=== PATIENT | male | born 1965 | race Caucasian/White ===

== ENCOUNTER 2023-05-04 14:08 | Emergency (ER) | payer OTHER, SELFPAY ==
[2023-05-04 14:08] VITALS: BP 156/100; PULSE 74; RESP 16; O2SAT 100
[2023-05-04 14:09] VITALS: BP 156/100; PULSE 76; RESP 14; TEMP 36.5; O2SAT 100; BMI 22.7
--- NOTE | 2023-05-04 14:34 | EKG12_ITS ---
Test Reason : DIZZY Blood Pressure : / mmHG Vent. Rate : 058 BPM Atrial Rate : 058 BPM P-R Int : 200 ms QRS Dur : 074 ms QT Int : 402 ms P-R-T Axes : -01 070 027 degrees QTc Int : 394 ms Sinus bradycardia Otherwise normal ECG Confirmed by BEVERLEY BACON, DAYNE ([id number]), society editor CHELSIE DAWSON ([id number]) on 05/05/2023 9:15:31 AM Referred By: Confirmed By:DAYNE LOWERY MD
--- NOTE | 2023-05-04 14:45 | RAD_ITS ---
STUDY: X-RAY CHEST REASON FOR EXAM: Male, 58 years old. Chest pain. TECHNIQUE: PA and lateral views of the chest. COMPARISON: None. FINDINGS: Surgical clips are seen overlying the right lung apex. There is hyperinflation of the lungs consistent with chronic obstructive lung disease (COPD). There is no demonstrated pleural abnormality. Normal size heart. Normal mediastinum and ian. There is prominence of the pulmonary hilar arteries without peripheral pulmonary vascular congestion, suggesting pulmonary hypertension. Normal visualized aortic arch and descending thoracic aorta. There are degenerative changes of the visualized thoracic spine. Normal visualized ribs, clavicles, and shoulders. There is no demonstrated abnormality of the visualized soft tissue structures of the upper abdomen. RAD/Chest PA and Lateral IMPRESSION: Hyperinflation and COPD. No acute infiltrate is seen. Electronically Signed: Stas Bird MD at 15:11 EDT ,
--- NOTE | 2023-05-04 14:46 | EDS_ITS ---
HPI <Esther Murillo RN - Last Filed: 05/04/23 17:03> History of Present Illness Chief Complaint: Dizziness Detail of Chief Complaint: Lightheaded and weak, bilateral rib cramping Informant: patient Onset/Context/Timing Onset: Yesterday Quality: Cramping Location: Bilateral lower ribs, midaxillary line Current Severity: 5/10 Maximum Severity: 8/10 Worsened by: Activity Relieved by: Rest Associated Symptoms Associated Symptoms: None Narrative Narrative: Patient is a 58-year-old male with past medical history significant for head and neck cancer with last chemo 10/2022, radiation 11/09/2022, chronic diarrhea, and OR with stent in 09/2022 who presents with intermittent lightheaded nests and weakness beginning yesterday. Patient also complains of bilateral lower rib cramping located at the mid axillary line right side greater than left. Patient reports pain worse with deep inspiration and activity. Denies injury or strenuous activity other than work. Denies shortness of breath, chest pain, or palpitations. He reports no change in appetite. 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 Has not taken any medication for pain. Patient reports last visit with physician was at the [facility] 1 month ago. Patient denies recent ill contacts or travel. Denies alcohol use. Patient is a 1 pack/day smoker x 49 years. Prior similar symptoms: No Recent Illness/Hospitalization: No PFSH <Esther Murillo RN - Last Filed: 05/04/23 17:03> PFSH Medical History Cancer of neck Hyperlipidemia Home Medications atorvastatin 80 mg tablet 80 mg PO DAILY 05/04/23 [History Last Taken Unknown] clopidogrel 75 mg tablet 75 mg PO DAILY 05/04/23 [History Last Taken Unknown] gabapentin 800 mg tablet 800 mg PO TID 05/04/23 [History Last Taken Unknown] Allergy/AdvReac Type Severity Reaction Status Date / Time No Known Allergies Allergy Verified 05/04/23 14:10 Surgical History Stented coronary artery Social History Smoking Status: Current every day smoker tobacco type: cigarettes ROS <Esther Murillo RN - Last Filed: 05/04/23 17:03> ROS ED Constitutional Constitutional ED: Denies chills, fever(s), sweats or weight loss Eyes Eyes: Denies change in vision ENT ENT ED: Denies ear pain, rhinorrhea or sore throat Cardiovascular Cardiovascular: Denies chest pain, orthopnea, palpitations, paroxysmal nocturnal dyspnea or racing heartbeat Respiratory/Chest Respiratory/Chest: Denies cough, dyspnea, dyspnea on exertion, orthopnea or paroxysmal nocturnal dyspnea Gastrointestinal Gastrointestinal: Reports diarrhea and other Details: Chronic diarrhea ; Denies abdominal pain, constipation, melena, nausea or vomiting Genitourinary Genitourinary ED: Reports other Details: Intermittent dark urine ; Denies dysuria, hematuria or urinary frequency Musculoskeletal Musculoskeletal: Reports myalgias; Denies arthralgias or back pain Integumentary Denies abscess, Abrasions or rash Neurologic Neurologic: Reports weakness; Denies headache(s) or paresthesias Psychiatric Psychiatric: Denies anxiety or depression Endocrine Endocrinology: Denies cold intolerance, heat intolerance, polydipsia, polyphagia or polyuria Hematologic/Lymphatic Hematologic/Lymphatic: Reports systems reviewed and no addt'l complaints, except as documented Allergic/Immunologic Allergic/Immunologic ED: Denies urticaria EXAM <Esther Murillo RN - Last Filed: 05/04/23 17:03> Physical Exam Narrative Exam Narrative: Patient is a thin male, awake and alert. Talkative, cooperative. Good historian. Const Vital Signs: 05/04/23 14:08 05/04/23 14:09 05/04/23 14:14 Temperature 97.7 F L Temperature Source Temporal Pulse Rate 74 76 Pulse Rate [Lying] Pulse Rate [Sitting (for 1 minute prior to obtaining)] Pulse Rate [Standing (for 1 minute prior to obtaining)] Respiratory Rate 16 14 Respiratory Effort Normal Respiratory Pattern Normal Blood Pressure 156/100 H 156/100 H Blood Pressure [Lying] Blood Pressure [Sitting (for 1 minute prior to obtaining)] Blood Pressure [Standing (for 1 minute prior to obtaining)] Blood Pressure Mean 118 118 Blood Pressure Mean [Lying] Blood Pressure Mean [Sitting (for 1 minute prior to obtaining)] Blood Pressure Mean [Standing (for 1 minute prior to obtaining)] Pulse Ox 100 100 Oxygen Delivery Method Room Air Room Air 05/04/23 16:08 05/04/23 16:35 05/04/23 16:59 Temperature 97.6 F L Temperature Source Pulse Rate 58 L 64 Pulse Rate [Lying] 66 Pulse Rate [Sitting (for 1 minute prior to obtaining)] 71 Pulse Rate [Standing (for 1 minute prior to obtaining)] 68 Respiratory Rate 17 17 Respiratory Effort Respiratory Pattern Blood Pressure 143/85 H 126/86 H Blood Pressure [Lying] 131/81 H Blood Pressure [Sitting (for 1 minute prior to obtaining)] 128/83 H Blood Pressure [Standing (for 1 minute prior to obtaining)] 135/91 H Blood Pressure Mean 104 99 Blood Pressure Mean [Lying] 97 Blood Pressure Mean [Sitting (for 1 minute prior to obtaining)] 98 Blood Pressure Mean [Standing (for 1 minute prior to obtaining)] 105 Pulse Ox 99 100 Oxygen Delivery Method Room Air Positive well nourished and well developed General Appearance ED: well developed and NAD HEENT Reports moist mucous membranes HEENT Narrative: Pupils +3, PERRL. No nystagmus noted. tenderness; Negative for trauma Eyes PERRL and EOMs intact bilaterally Neck no lymphadenopathy, supple and no JVD Neck Narrative: Chronic pain and tenderness to right side of neck below mandible. Patient reports is chronic since surgery for cancer. General: tenderness Chest Wall inspection of chest normal Chest Narrative: Pain to bilateral lower ribs, midaxillary line with palpation and deep inspiration. Resp normal respiratory effort and clear to auscultation bilaterally Effort and Inspection: pain with movement Auscultation: Negative for rales, rhonchi or wheezes Cardio regular rate, regular rhythm, S1 normal heart sound and S2 normal heart sound GI normal to inspection, nondistended, normoactive bowel sounds Palpation: soft Narrative: Patient reports occasional dark urine. Denies hematuria Back/Spine no CVA tenderness Cervical Spine: Negative for cervical spine tenderness Thoracic Spine / Upper Back: Negative for thoracic spinal tenderness or paraspinal muscle tenderness Lumbar Spine / Lower Back: Negative for lumbar spinal tenderness Extremity normal to inspection General Extremety ED: Negative for edema or tenderness General Extremity: Negative for edema Neuro oriented x3 and CN's II-XII intact bilaterally Sensorium / Orientation: alert Motor Exam: strength 5/5 throughout Psych mental status grossly normal Skin no rashes or lesions noted, no wounds and skin turgor normal <Dr. Fareed Clark MD - Last Filed: 05/04/23 21:32> Physical Exam Const Vital Signs: 05/04/23 14:08 05/04/23 14:09 05/04/23 14:14 Temperature 97.7 F L Temperature Source Temporal Pulse Rate 74 76 Pulse Rate [Lying] Pulse Rate [Sitting (for 1 minute prior to obtaining)] Pulse Rate [Standing (for 1 minute prior to obtaining)] Respiratory Rate 16 14 Respiratory Effort Normal Respiratory Pattern Normal Blood Pressure 156/100 H 156/100 H Blood Pressure [Lying] Blood Pressure [Sitting (for 1 minute prior to obtaining)] Blood Pressure [Standing (for 1 minute prior to obtaining)] Blood Pressure Mean 118 118 Blood Pressure Mean [Lying] Blood Pressure Mean [Sitting (for 1 minute prior to obtaining)] Blood Pressure Mean [Standing (for 1 minute prior to obtaining)] Pulse Ox 100 100 Oxygen Delivery Method Room Air Room Air 05/04/23 16:08 05/04/23 16:35 05/04/23 16:59 Temperature 97.6 F L Temperature Source Pulse Rate 58 L 64 Pulse Rate [Lying] 66 Pulse Rate [Sitting (for 1 minute prior to obtaining)] 71 Pulse Rate [Standing (for 1 minute prior to obtaining)] 68 Respiratory Rate 17 17 Respiratory Effort Respiratory Pattern Blood Pressure 143/85 H 126/86 H Blood Pressure [Lying] 131/81 H Blood Pressure [Sitting (for 1 minute prior to obtaining)] 128/83 H Blood Pressure [Standing (for 1 minute prior to obtaining)] 135/91 H Blood Pressure Mean 104 99 Blood Pressure Mean [Lying] 97 Blood Pressure Mean [Sitting (for 1 minute prior to obtaining)] 98 Blood Pressure Mean [Standing (for 1 minute prior to obtaining)] 105 Pulse Ox 99 100 Oxygen Delivery Method Room Air IGOR <Esther Murillo RN - Last Filed: 05/04/23 17:03> [facility] IGOR Narrative Medical decision making narrative: IV line initiated. Labwork obtained to evaluate for leukocytosis, anemia, and electrolyte derangement. EKG obtained to evaluate for cardiac arrhythmia/ischemia. Chest x-ray obtained to evaluate for acute lung pathology, cardiac size, or mediastinal abnormality. History & Record Review Discussion w/independent historian: Patient Lab Data Labs: Laboratory Results - last 24 hr 05/04/23 14:40 WBC 4.2 L RBC 5.36 Hgb 15.0 Hct 46.2 MCV 86.2 MCH 28.0 MCHC 32.5 RDW Std Deviation 42.2 RDW Coeff of Tre 13.4 Plt Count 222 MPV 10.0 Immature Gran % (Auto) 0.200 Neut % (Auto) 67.9 Lymph % (Auto) 17.9 L Grimes % (Auto) 8.3 Eos % (Auto) 5.0 Baso % (Auto) 0.7 Absolute Neuts (auto) 2.9 Absolute Lymphs (auto) 0.76 L Nucleated RBC % 0 Sodium 141 Potassium 3.6 Chloride 109 H Carbon Dioxide 29.0 Anion Gap 3 L BUN 18 Creatinine 1.43 H Estim Creat Clear Calc 53.35 Est GFR (MDRD) Af Amer 65 Est GFR (MDRD) Non-Af 54 L BUN/Creatinine Ratio 12.6 Glucose 100 Calcium 9.1 Total Bilirubin 0.30 AST 10 L ALT 16 Alkaline Phosphatase 100 Total Protein 6.5 Albumin 3.3 Globulin 3.2 Albumin/Globulin Ratio 1.0 Radiography Diagnostic Testing: Clinical Impression(s) from Imaging Studies Chest X-Ray 05/04/23 14:45 IMPRESSION: Hyperinflation and COPD. No acute infiltrate is seen. Electronically Signed: Stas Bird MD at 15:11 EDT , Differential Diagnosis Chest pain/SOB: ACS and CHF Management Discussion w/another healthcare provider: Other (Dr. Clark, ED provider) Treatment and Re-Evaluation :: Lab work reviewed. CBC shows a white blood cell count of 4.2, hemoglobin 15, and platelets 222. Chemistry shows a slightly elevated chloride of 109. BUN 18, creatinine 1.43. GFR is decreased at 54. Patient denies prior history of kidney disease. Upon reevaluation, patient awake and alert in bed. Reports bilateral lateral rib pain has decreased from 7/10 to 4/10 after oxycodone. Orthostatic vitals obtained and negative. Patient was ambulated in the hallway. He ambulated with a steady gait. He will be discharged home with follow-up with his primary care in 1 week. He is instructed to return for worsening or concerning symptoms. Plan discussed with patient and patient agreeable. <Dr. Fareed Clark MD - Last Filed: 05/04/23 21:32> [facility] MDM Narrative Medical decision making narrative: IV line initiated. Labwork obtained to evaluate for leukocytosis, anemia, and electrolyte derangement. EKG obtained to evaluate for cardiac arrhythmia/ischemia. Chest x-ray obtained to evaluate for acute lung pathology, cardiac size, or mediastinal abnormality. I have personally performed a face to face assessment of the patient and have reviewed the TASHA Note. I performed a substantive portion of the visit including all aspects of the following. My little findings include: History is 38-year-old male planing of lightheadedness and rib cage pain. Denies any fall injury or trauma. Started yesterday. He denies any shortness of breath or chest pain he describes it as right rib cage pain. No history of DVT or PE. He does have a cardiac stent. This is not exertional. He also states having some lightheadedness which she gets occasionally after he had had neck surgery resection on the right side of his neck done at [facility]. He also underwent chemo and radiation for that treatment. Exam is [well-appearing 58-year-old male. Vital signs are stable afebrile. H EENT exam unremarkable. Pupils round react to light. Moist extremities. Neck nontender. Well-healed surgical incisions on the right side of his neck. Trachea midline. Lungs clear to auscultation bilaterally. Heart regular rhythm no murmur. Chest wall is reproducible right-sided rib cage pain. There is no crepitus or subcu air. No signs of trauma. Left side is nontender. Abdomen soft and nontender. Moving all 4 extremities. Calves are nontender without edema or cords. Neurologically patient is awake and alert with no focal motor deficits. NIH is 0. Answering questions and following commands.] Medical Decision Making [58-year-old male prior history of head neck cancer with resection, radiation and chemotherapy. Complaining of lightheadedness and rib cage pain. Screening labs and chest x-ray will be obtained.] Other additions or changes: [Chest x-ray, 2 views, AP and lateral shows no acute abnormality. Normal cardiac silhouette. Normal lungs and rib cage. EKG shows a sinus bradycardia rate of 58 no acute signs of OR nor ischemia nor dysrhythmia.] Lab Data Attestation: I reviewed the patient's lab results. Lab results narrative: CBC shows a white count of 4.2. H&H of 15 and 46. Platelets 222. Labs: Laboratory Results - last 24 hr 05/04/23 14:40 WBC 4.2 L RBC 5.36 Hgb 15.0 Hct 46.2 MCV 86.2 MCH 28.0 MCHC 32.5 RDW Std Deviation 42.2 RDW Coeff of Tre 13.4 Plt Count 222 MPV 10.0 Immature Gran % (Auto) 0.200 Neut % (Auto) 67.9 Lymph % (Auto) 17.9 L Grimes % (Auto) 8.3 Eos % (Auto) 5.0 Baso % (Auto) 0.7 Absolute Neuts (auto) 2.9 Absolute Lymphs (auto) 0.76 L Nucleated RBC % 0 Sodium 141 Potassium 3.6 Chloride 109 H Carbon Dioxide 29.0 Anion Gap 3 L BUN 18 Creatinine 1.43 H Estim Creat Clear Calc 53.35 Est GFR (MDRD) Af Amer 65 Est GFR (MDRD) Non-Af 54 L BUN/Creatinine Ratio 12.6 Glucose 100 Calcium 9.1 Total Bilirubin 0.30 AST 10 L ALT 16 Alkaline Phosphatase 100 Total Protein 6.5 Albumin 3.3 Globulin 3.2 Albumin/Globulin Ratio 1.0 Radiography Chest X-Ray - ED: 2 View, Read by ED Physician, Heart, Lungs, Mediastinum, Bony Structures, No Acute Disease and Chronic Changes Diagnostic Testing: Clinical Impression(s) from Imaging Studies Chest X-Ray 05/04/23 14:45 IMPRESSION: Hyperinflation and COPD. No acute infiltrate is seen. Electronically Signed: Stas Bird MD at 15:11 EDT , Chest x-ray, 2 views, AP and lateral shows no acute abnormality. Normal cardiac silhouette. Normal lung montes. Normal bony structures. Rhythm Strip Rhythm Strip: Sinus Rhythm Rate: 58 Ectopy: None EKG Initial EKG: Attestation: I personally reviewed and interpreted this EKG as follows: Interpretation: Sinus Rhythm and Sinus Bradycardia Comments: Sinus bradycardia rate of 58 no acute signs of OR nor ischemia nor dysrhythmia. Discharge Plan Triage Chief Complaint: Dizziness ED Provider: Fareed Clark Dx/Rx/DC Orders Clinical Impression: Dizziness, Musculoskeletal chest pain Instructions: ED Chest Pain, Uncertain Cause, ED Dizziness, Uncertain Cause Prescriptions: No Action atorvastatin 80 mg tablet 80 mg PO DAILY clopidogrel 75 mg tablet 75 mg PO DAILY gabapentin 800 mg tablet 800 mg PO TID Stand Alone Forms: ED Work / School Excuse Primary Care Provider: Jorge Rodriguez Referrals: Jorge Rodriguez MD [Primary Care Provider] - Activity Restrictions/Additional Instructions: Your lab work, EKG, and chest x-ray are all normal. Follow-up with Dr. Jorge Rodriguez in 1 week. You may take ibuprofen 400 mg every 6 hours for your rib pain. You may also use ice and/or heat for your rib pain. Return to the ED for worsening or concerning symptoms. Disposition Disposition: Home, Self Care Discharge Date/Time: 05/04/23 17:30
[2023-05-04 14:48] LABS: Absolute Lymphocyte Count 0.76 X10^3/uL (0.83-4.51); Absolute Neutrophil Count 2.9 X10^3/uL (2.0-7.7); Basophil# 0.03 X10^3/uL; Basophil% 0.7 % (0-1); Eosinophil# 0.21 X10^3/uL; Hematocrit 46.2 % (40-54); Lymphocyte # 0.76 X10^3/ul (0.83-4.51); Lymphocyte % 17.9 % (19-41); Mean Corp Hgb Conc 32.5 g/dL (32-36); Mean Corpuscular Volume 86.2 fL (80-94); Monocyte# 0.35 X10^3/uL; Monocyte% 8.3 % (0-10); NRBC Flagged by Analyzer 0 % (0-5); Neutrophil # 2.88 X10^3/uL (2.7-7.7); Neutrophil % 67.9 % (47-70); Platelet Count 222 K/mm3 (150-450); RBC Distribution Width CV 13.4 % (11.6-14.6); RBC Distribution Width SD 42.2 fl (35.1-43.9); Red Blood Count 5.36 M/mm3 (4.6-6.2); White Blood Count 4.2 K/mm3 (4.4-11.0)
[2023-05-04] MEDS: oxyCODONE 5 MG Tablet PO (15:26)
[2023-05-04 15:30] LABS: AST(SGOT) 10 U/L (15-37); Alanine Aminotransfer ALT/SGPT 16 U/L (16-61); Albumin, Serum 3.3 g/dL (3.2-5.0); Alkaline Phosphatase 100 U/L (45-117); Anion Gap 3 (5-15); BUN 18 mg/dL (7-18); BUN/Creat Ratio 12.6 RATIO (10-20); Calcium,Total 9.1 mg/dL (8.5-10.1); Chloride 109 mmol/L (98-107); Creatinine, Serum 1.43 mg/dL (0.70-1.30); EST Glomerular Filtration Rate 54 mL/min (>60); Est Glom Filt Rate - Afr Amer 65 mL/min (>60); Estimated Creatinine Clearance 53.35 ml/min; Globulin 3.2 g/dL (2.2-4.2); Glucose 100 mg/dL (74-106); Potassium 3.6 mmol/L (3.5-5.1); Protein, Total 6.5 g/dL (6.4-8.2); Sodium Level 141 mmol/L (136-145)
[2023-05-04 16:08] VITALS: BP 143/85; PULSE 58; RESP 17; O2SAT 99
[2023-05-04 16:35] VITALS: BP 128/83; BP 131/81; BP 135/91; PULSE 66; PULSE 68; PULSE 71
[2023-05-04 16:59] VITALS: BP 126/86; PULSE 64; RESP 17; TEMP 36.4; O2SAT 100
== END 2023-05-04 17:30 | disposition home or self-care (01) ==
PROVIDERS: Emergency Provider Emergency Medicine; PCP Internal Medicine; Visit Provider Emergency Medicine
DX: R42 Dizziness and giddiness (principal); R07.89 Other chest pain; F17.210 Nicotine dependence, cigarettes, uncomplicated; Z79.899 Other long term (current) drug therapy; Z79.01 Long term (current) use of anticoagulants; Z95.5 Presence of coronary angioplasty implant and graft
CPT/HCPCS: 71046; 80053; 85025; 93005; 99284; A4216

== ENCOUNTER 2023-08-16 08:36 | Emergency (ER) | payer OTHER, SELFPAY ==
[2023-08-16 08:36] VITALS: BP 108/78; PULSE 72; RESP 14; TEMP 36.6; O2SAT 99; BMI 21.7
--- NOTE | 2023-08-16 09:02 | EX.ED.DYSGE1 ---
HPI History of Present Illness Chief Complaint: Headache [facility] Medical History Cancer of neck Hyperlipidemia Home Medications ?Medication ?Instructions ?Recorded ?Last Taken ?Type atorvastatin 80 mg tablet 80 mg PO DAILY 05/04/23 Unknown History clopidogrel 75 mg tablet 75 mg PO DAILY 05/04/23 Unknown History gabapentin 800 mg tablet 800 mg PO TID 05/04/23 Unknown History prednisone 50 mg tablet 50 mg PO DAILY #5 tabs 08/16/23 Unknown Rx Allergy/AdvReac Type Severity Reaction Status Date / Time No Known Allergies Allergy Verified 08/16/23 08:36 Surgical History Stented coronary artery Social History Smoking Status: Current every day smoker tobacco type: cigarettes EXAM Physical Exam Const Vital Signs: 08/16/23 08:36 08/16/23 10:36 Temperature 98 F Temperature Source Temporal Pulse Rate 72 82 Respiratory Rate 14 18 Blood Pressure 108/78 110/78 Blood Pressure Mean 88 88 Pulse Ox 99 98 Oxygen Delivery Method Room Air Room Air MDM MDM MDM Narrative Medical decision making narrative: HISTORY OF PRESENT ILLNESS: 58-year-old male presents with 1 year of worsening neck pain and headache. Notes he has a history of head and neck cancer was treated over a year ago. Notes he follows with pain management his primary care doctor. Notes he has in the process of getting outpatient MRI. He notes the pain worsened today while he was working. Denies any falls or other trauma. Denies any fever. Denies any sick contacts. Denies any visual changes or other focal neurologic deficits. Denies any vomiting. Denies any chest pain or shortness of breath. Denies any ripping or tearing sensation. Denies any personal history of connective tissue disorders. REVIEW OF SYSTEMS: Pertinent positives: Headache, neck pain Pertinent negatives: Fever, neck stiffness, focal upper extremity neurologic deficits, falls or trauma PHYSICAL EXAM: Nursing triage notes reviewed, Vital signs reviewed Constitutional: please see mdm HENT: MMM, no oropharyngeal erythema, uvula midline, no tonsillar edema, no submandibular edema Eyes: Pupils equal round and reactive to light, Extraocular muscles intact Neck: No stridor, no JVD, full neck ROM, no step-offs deformities to the cervical spine, no carotid bruits, trachea midline, Lungs: Clear to auscultation, No wheezing or rales. No increased work of breathing, no conversational dyspnea, no accessory muscle use, no nasal flaring. No respiratory distress noted Heart: Regular rate and rhythm, No murmurs, No rubs and No gallops, 2+ distal pulses (radial, femoral, posterior tibial) in all extremities Abdomen: Soft, there is no tenderness, rigidity, rebound or guarding, no obvious peritoneal signs, no palpable pulsatile abdominal masses, no auscultated abdominal bruit : No CVAT Extremities: No edema Neuro: Alert and oriented x3, neuro exam at baseline, cranial nerves II through XII are intact. No pain with extraocular muscle movement. There is negative test of skew. 5 of 5 strength in upper and lower extremities in flexion extension. Intact sensation to light touch in upper and lower extremity dermatomes. No truncal or extremity ataxia. No dysdiadochokinesia. Normal gait. 2+ reflexes in upper and lower extremities. No meningeal signs. Negative Babinski. NIH of 0. Intact 5/5 strength with ok sign (median), intact finger abduction (ulnar) intact wrist extension (radial n). Intact sensation in the radial, ulnar, and median nerve distributions. Skin: No rash or lesions noted MEDICAL DECISION MAKING: Chief Complaint: Headache, neck pain External records reviewed: Reviewed: NO Recent adVanced imaging of the brain or neck Factors affecting care: n hyperlipidemia history of head neck cancer, Social determinants of health: Smoker History obtained from others: none Consults: none MDM Narrative: Patient was hemodynamically stable, afebrile and nontoxic-appearing. Exam without focal neurologic deficits. No step-offs or deformities. Trachea was midline. No signs of intraoral infection or Josue angina. I considered the following differential diagnosis: ICH, carotid artery dissection, meningitis, fractures or dislocation of the cervical spine, temporal arteritis I obtained a CT scan of the head to rule out any intracranial abnormalities given headache, pain to CT scan of the neck to rule out any cervical spine abnormalities or soft tissue injuries. The Patient's clinical exam is not consistent meningitis as he has no fever and no focal logic deficits no sick contacts. No neck stiffness or meningeal signs. While I considered meningitis as a potential etiology I think this is less likely given patient's clinical exam. I treated the patient with oral medicines including 650 mg of Tylenol, 6 mg of Decadron, 40 mg ibuprofen, 5 mg oxycodone ALL IMAGES (IF OBTAINED) HAVE BEEN PERSONALLY REVIEWED AND INTERPRETED BY MYSELF. CT scan of the head, cervical spine shows no evidence of acute life-threatening abnormality. I suspect the patient's pain is acute on chronic he follows with pain management and has a pending outpatient MRI. Encouraged to follow-up this appointment. Lymphadenopathy noted on CT scan of the cervical spine is likely secondary to remote cancer. Will have him follow-up with his oncologist and primary care physician for further evaluation and possible lymph node biopsy. The patient and/or family, caregivers express understanding. The patient and/or family, caregivers agrees with the plan. Shared decision making: I will have a discussion with the patient and or visitors regarding risk/benefits of further testing or admission. They will be made aware of of the risk/benefits inherent in this decision they will be given the opportunity to voice understanding. Total critical care time today provided was at least 0 minutes. This excludes separately billable procedures. Critical care time (if documented) is secondary to the patient having high probability of clinically significant/life threatening deterioration in the patient's condition which required my urgent intervention. Impression: 1. Acute on chronic headache 2. Acute on chronic neck pain 3. History of head neck cancer Dispo: discharge home This note was generated with [employer] dictation software. It may contain incorrect words, spelling, and punctuation that were not noted in review of the chart prior to signing. Radiography Diagnostic Testing: Clinical Impression(s) from Imaging Studies Brain CT 08/16/23 09:20 IMPRESSION: Mild degree of involutional changes of the brain. Electronically Signed: Stas Bird MD at 10:30 EDT , Cervical Spine CT 08/16/23 09:20 IMPRESSION: Multilevel degenerative changes, as described above. Soft tissue prominence in the posterior triangle of the right side of the neck at the site of the surgical clips. Enlarged lymphadenopathy should be ruled out. Electronically Signed: Stas Bird MD at 10:33 EDT , Discharge Plan Triage Chief Complaint: Headache ED Provider: Doe Barraza Dx/Rx/DC Orders Prescriptions: New prednisone 50 mg tablet 50 mg PO DAILY Qty: 5 0RF No Action atorvastatin 80 mg tablet 80 mg PO DAILY clopidogrel 75 mg tablet 75 mg PO DAILY gabapentin 800 mg tablet 800 mg PO TID Primary Care Provider: Jorge Rodriguez Referrals: Jorge Rodriguez MD [Primary Care Provider] - Activity Restrictions/Additional Instructions: Thank you for trusting us with your care today! Please take Tylenol (2 pills, 650 mg), ibuprofen (2 pills, 400 mg) every 6 hours as needed for pain and fever control. Please take prednisone as prescribed. Please return to the emergency department if your symptoms change or worsen. Specifically develop difficulty swallowing, loss of movement or sensation of extremities Please follow with your primary care physician, oncology and pain management for further outpatient evaluation and management. Print Language: Amharic Disposition Disposition: Home, Self Care Discharge Date/Time: 08/16/23 11:51
--- NOTE | 2023-08-16 09:20 | CT_ITS ---
STUDY: CT BRAIN WITHOUT CONTRAST REASON FOR EXAM: Male, 58 years old. Headache RADIATION DOSAGE (If Supplied By Facility): CTDIvol = ( 44.99 ) mGy, DLP = ( 796.11 ) mGycm TECHNIQUE: Transaxial CT imaging of the brain was performed without administration of intravenous contrast material. Individualized dose optimization techniques were used for this CT. COMPARISON: No relevant priors. FINDINGS: Normal soft tissue structures. Normal calvarium. There is mild cerebral atrophy with widening of the extra-axial spaces and ventricular dilatation. Normal white matter tracts of the cerebral hemispheres. Normal basal ganglia and thalami. Normal brainstem. Normal cerebellum. There is no intracranial hemorrhage. There are no findings of an acute ischemic infarction. Atherosclerotic plaque formation of the vertebral arteries and cavernous portions of the internal carotid arteries bilaterally. Normal visualized paranasal sinuses. CT/Brain/Head without Contrast IMPRESSION: Mild degree of involutional changes of the brain. Electronically Signed: Stas Bird MD at 10:30 EDT ,
--- NOTE | 2023-08-16 09:20 | CT_ITS ---
STUDY: CT CERVICAL SPINE WITHOUT CONTRAST REASON FOR EXAM: Male, 58 years old. Neck pain hx of neck cancer RADIATION DOSAGE (If Supplied By Facility): CTDIvol = ( 19.45 ) mGy, DLP = ( 406.90 ) mGycm TECHNIQUE: High resolution transaxial imaging was performed without contrast material. Sagittal and coronal images were reconstructed. Individualized dose optimization techniques were used for this CT. COMPARISON: None FINDINGS: Normal craniovertebral junction. Normal anterior atlantoaxial articulation. Normal odontoid process. There is straightening of the normal cervical lordosis. Normal vertebral bodies and posterior osseous elements. C2-3: Normal endplates. Normal disc height and morphology. Normal central canal and intervertebral neuroforamina. C3-4: Facet joint osteoarthritis and hypertrophy worse on the right side. No significant stenosis seen. C4-5: Facet joint osteoarthritis and hypertrophy. No significant stenosis is seen. C5-6: Facet joint osteoarthritis and hypertrophy worse on the left side. No significant stenosis seen. C6-7: Marked degree of disc space narrowing. Spondylosis. Uncovertebral arthrosis. Mild degree of bilateral neural foraminal stenosis. C7-T1: Normal endplates. Normal disc height and morphology. Normal central canal and intervertebral neuroforamina. Surgical clips are seen in the lower right cervical region. Soft tissue prominence is seen in the posterior triangle of the right side of the neck at the site of the surgical clips. Enlarged lymph nodes should be ruled out. CT/Spine Cervical without Contras IMPRESSION: Multilevel degenerative changes, as described above. Soft tissue prominence in the posterior triangle of the right side of the neck at the site of the surgical clips. Enlarged lymphadenopathy should be ruled out. Electronically Signed: Stas Bird MD at 10:33 EDT ,
[2023-08-16] MEDS: oxyCODONE 5 MG Tablet PO (09:27)
[2023-08-16] MEDS: Ibuprofen 200 MG Tablet 400 MG PO (09:27)
[2023-08-16] MEDS: Acetaminophen 325 MG Tablet 650 MG PO (09:27)
[2023-08-16] MEDS: dexAMETHasone 4 MG Tablet PO (09:39)
[2023-08-16 10:36] VITALS: BP 110/78; PULSE 82; RESP 18; O2SAT 98
== END 2023-08-16 11:51 | disposition home or self-care (01) ==
PROVIDERS: Emergency Provider Emergency Medicine; PCP Internal Medicine; Visit Provider Emergency Medicine
DX: R51.9 Headache, unspecified (principal); M54.2 Cervicalgia; G89.29 Other chronic pain; F17.210 Nicotine dependence, cigarettes, uncomplicated; Z95.5 Presence of coronary angioplasty implant and graft
CPT/HCPCS: 70450; 72125; 99283

== ENCOUNTER 2024-09-21 08:59 | Emergency (ER) | payer OTHER, SELFPAY ==
[2024-09-21 09:00] VITALS: BP 165/99; PULSE 62; RESP 16; TEMP 36.7; O2SAT 100; BMI 22.4
--- NOTE | 2024-09-21 09:50 | RAD_ITS ---
PROCEDURE: STERNUM MIN 2 VIEWS 09/21/2024 REASON FOR EXAM: BLUNT TRAUMA, POINT TENDERNESS OVER THE BODY OF TH TECHNIQUE: STERNUM MIN 2 VIEWS COMPARISON: None FINDINGS: No fracture or dislocation. RAD/Sternum min 2 Views IMPRESSION: No acute abnormality is seen. Reading Location: [place] [id number]
--- NOTE | 2024-09-21 09:50 | RAD_ITS ---
PROCEDURE: CHEST PA AND LATERAL 09/21/2024 REASON FOR EXAM: BLUNT TRAUMA, PAIN WITH BREATHING TECHNIQUE: CHEST PA AND LATERAL COMPARISON: 08/27/2023 FINDINGS: Hardware: Surgical clips right neck. Heart: Normal Mediastinum: Normal Lungs: Clear Bones: Degenerative changes are identified within the thoracic spine. RAD/Chest PA and Lateral IMPRESSION: No acute cardiopulmonary process. Reading Location: [id number]
[2024-09-21] MEDS: HYDROcodone Bitartrate/Apap 5/325 Tablet PO (10:04)
--- NOTE | 2024-09-21 10:41 | EX.ED.UPPERE ---
HPI History of Present Illness Chief Complaint: Upper Extremity Injury Detail of Chief Complaint: Patient had a fall and is complaining of pain over the sternum. Informant: patient Occured/Mechanism Mechanism/Context: Yes blunt trauma Onset/Context/Timing Onset: Today and Hours Context: Sudden Onset Timing: Continuous Quality of Pain: Dull and Aching Location: Body of the sternum Current Severity: Mild Maximum Severity: Moderate Worsened by: Deep breathing, palpation Relieved by: Not breathing Associated Symptoms Associated Symptoms: Negative for Parasthesia, Weakness or Loss of Funtion Narrative Narrative: Patient is a 59-year-old male who fell. He struck his chest against a mobile object. He tripped over his cat causing the fall. He denies head trauma. Denies headache, he is not amnestic. He denies neck pain. He denies paresthesia, anesthesia or motor weakness upper or lower extremity. He denies trouble with coordination or balance. He does report chest pain. He has some shortness of breath because of it hurting when he takes a deep breath. Prior similar symptoms: No Recent Illness/Hospitalization: No [facility] Medical History Cancer of neck Hyperlipidemia Home Medications ?Medication ?Instructions ?Recorded ?Last Taken ?Type atorvastatin 80 mg tablet 80 mg PO DAILY 05/04/23 Unknown History clopidogrel 75 mg tablet 75 mg PO DAILY 05/04/23 Unknown History gabapentin 800 mg tablet 800 mg PO TID 05/04/23 Unknown History prednisone 50 mg tablet 50 mg PO DAILY #5 tabs 08/16/23 Unknown Rx naproxen 500 mg tablet 500 mg PO BID #14 tabs 09/21/24 Unknown Rx Allergy/AdvReac Type Severity Reaction Status Date / Time No Known Allergies Allergy Verified 09/21/24 09:01 Surgical History Stented coronary artery Social History Smoking Status: Current every day smoker tobacco type: cigarettes ROS ROS ED Constitutional Constitutional ED: Denies chills, fever(s), subjective or sweats Eyes Eyes: Denies blurry vision or change in vision Cardiovascular Cardiovascular: Reports chest pain; Denies palpitations or racing heartbeat Respiratory/Chest Respiratory/Chest: Denies cough, dyspnea or dyspnea on exertion Gastrointestinal Gastrointestinal: Denies abdominal pain, nausea or vomiting Genitourinary Genitourinary ED: Denies dysuria, hematuria or urinary frequency Musculoskeletal Musculoskeletal: Denies back pain or neck pain Integumentary Denies Abrasions or rash Neurologic Neurologic: Denies paresthesias Hematologic/Lymphatic Hematologic/Lymphatic: Denies easy bleeding or easy bruising EXAM Physical Exam Const Vital Signs: 09/21/24 09:00 Temperature 98.0 F Temperature Source Oral Pulse Rate 62 Respiratory Rate 16 Blood Pressure 165/99 H Blood Pressure Mean 121 Pulse Ox 100 Oxygen Delivery Method Room Air Positive well nourished and well developed General Appearance ED: well developed and NAD; Negative for cyanotic or diaphoretic HEENT Reports moist mucous membranes normocephalic and atraumatic Eyes PERRL and EOMs intact bilaterally Neck full ROM and supple Neck Narrative: There is no posterior midline tenderness. General: Negative for tenderness Chest Wall inspection of chest normal and palpation of chest normal Resp normal respiratory effort and clear to auscultation bilaterally Cardio regular rate, regular rhythm, S1 normal heart sound, S2 normal heart sound and no murmurs GI non-tender, non-distended and no masses Back/Spine no CVA tenderness Extremity normal to inspection and full ROM Neuro oriented x3 and CN's II-XII intact bilaterally Sensorium / Orientation: alert Psych mental status grossly normal Skin Lesions: no lesions Rashes: no rashes MDM MDM MDM Narrative Medical decision making narrative: Patient with significant tenderness over the body of the sternum. There is also some tenderness over the fourth fifth rib near the sternal border. There is no crepitus or subcutaneous air. Breath sounds were symmetric. Will obtain x-ray of the chest to evaluate for pneumomediastinum, pneumothorax and x-ray of the sternum to rule out fracture. Patient was medicated with oral meds. Radiography Chest X-Ray - ED: 2 View (2 view chest x-ray was normal cardiac silhouette and size. Hilum is normal. Osseous structures are unremarkable with no evidence of fracture. There is no Insa pneumothorax or hemothorax. The lateral view of the sternum is unremarkable. This independent reviewed interpreted by me) and Read by ED Physician (Three-view x-ray of the sternum was interpreted as negative. Film is suboptimal since its overpenetrated. Will look at radiology report and if there is discrepancy will contact patient.) Diagnostic Testing: Clinical Impression(s) from Imaging Studies Chest X-Ray 09/21/24 09:50 IMPRESSION: No acute cardiopulmonary process. Reading Location: [facility] Sternum X-Ray 09/21/24 09:50 IMPRESSION: No acute abnormality is seen. Reading Location: [id number] Treatment and Re-Evaluation Narrative: Patient was medicated with NSAID and opiate analgesia. He has a ride home. He was given a work excuse because he received opiate analgesia in the department. Patient is elevated blood pressure reading may be due to the fact that he is in pain. Will have him follow-up with his doctor for follow-up since he is asymptomatic Discharge Plan Triage Chief Complaint: Upper Extremity Injury ED Provider: Rayray Bradley Dx/Rx/DC Orders Clinical Impression: Contusion of sternum, Contusion of rib on left side, Injury due to fall, Elevated blood-pressure reading without diagnosis of hypertension Instructions: ED Chest Wall Contusion, ED Hypertension, To Be Confirmed Prescriptions: New naproxen 500 mg tablet 500 mg PO BID Qty: 14 0RF No Action atorvastatin 80 mg tablet 80 mg PO DAILY clopidogrel 75 mg tablet 75 mg PO DAILY gabapentin 800 mg tablet 800 mg PO TID prednisone 50 mg tablet 50 mg PO DAILY Qty: 5 0RF Stand Alone Forms: ED Work / School Excuse Primary Care Provider: Jorge Rodriguez Referrals: Jorge Rodriguez MD [Primary Care Provider] - 1 Week if not improving Activity Restrictions/Additional Instructions: 1. Apply ice 6-8 times a day for the next 3 to 5 days to your chest Print Language: Mohawk Disposition Disposition: Home, Self Care
[2024-09-21 11:33] VITALS: BP 153/78; PULSE 81; RESP 16; TEMP 36.4; O2SAT 95
== END 2024-09-21 11:34 | disposition home or self-care (01) ==
PROVIDERS: Emergency Provider Emergency Medicine; PCP Internal Medicine; Visit Provider Emergency Medicine
DX: S20.212A Contusion of left front wall of thorax, initial encounter (principal); W01.198A Fall on same level from slipping, tripping and stumbling with subsequent striking against other object, initial encounter; R03.0 Elevated blood-pressure reading, without diagnosis of hypertension; F17.210 Nicotine dependence, cigarettes, uncomplicated
CPT/HCPCS: 71046; 71120; 99283